=== PATIENT | female | born 1945 | race Caucasian/White ===

== ENCOUNTER 2017-07-21 14:33 | Emergency (ER) | payer OTHER, MEDICAID ==
[2017-07-21 15:06] VITALS: BP 175/86; BMI 43.9
--- NOTE | 2017-07-21 15:53 | DR.GENAD ---
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 Past Surgical History: Yes Surgical History: Hysterectomy - Family History History of Family Medical Conditions: Yes Family Medical History: Diabetes Mellitus - Social History Does patient currently use any type of tobacco product: No Have you used tobacco products in the last 12 months: No Type of Tobacco Use: None Does any household member use tobacco: No Alcohol Use: None Do you use any recreational Drugs:: No Lives With: Family Lives Where: Home - infectious screening In the last 2 months have you had wt loss of >10#?: NO Have you had fever, night sweats or hemotysis?: No Have you traveled outside the country in the last 6 months?: No Isolation: Standard ROS - Review of Systems Eyes: No Symptoms Reported ENTM: No Symptoms Reported Respiratoy: No Symptoms Reported Cardiovascular: No Symptoms Reported Gastrointestinal/Abdominal: No Symptoms Reported Genitourinary: No Symptoms Reported Neurological: No Symptoms Reported Musculoskeletal: No Symptoms Reported Integumentary: No Symptoms Reported Hematologic/Lymphatic: No Symptoms Reported Endocrine: No Symptoms Reported Psychiatric: No Symptoms Reported All Other Systems: Reviewed and Negative PE - Vital Signs Vitals: Pulse Rate 65 Respiratory Rate 20 Blood Pressure 175/86 O2 Sat by Pulse Oximetry 98 - General Limitations: No Limitations General Appearance: Alert, In No Apparent Distress - Head Head Exam: Normal Inspection, Atraumatic - Eyes Eye exam: Normal Appearance, PERRL, EOMI - ENT ENT Exam: Normal Exam, Normal Oropharynx External Ear Exam: Normal External Inspection TM/Canal Exam: Bilateral Normal Nose Exam: Normal Nose Exam, Sinus Tenderness Mouth Exam: Normal Inspection Throat Exam: Normal Inspection - Neck Neck Exam: Normal Inspection, Full ROM - Chest Chest Inspection: Normal Inspection - Respiratory Respiratory Exam: Normal Lung Sounds Bilat Respiratory Exam: Bilateral Clear to Auscultation - Cardiovascular Cardiovascular Exam: Regular Rate, Normal Rhythm - Abdominal Exam Abdominal Exam: Normal Inspection, Normal Bowel Sounds Abdominal Tenderness: negative: RUQ, RLQ, LUQ, LLQ, Epigastrium, Suprapubic, Diffuse, Mild, Moderate, Severe, Other - Extremities Extremities Exam: Normal Inspection, Full ROM - Back Back Exam: Normal Inspection, Full ROM - Neurologic Neurological Exam: Alert, Oriented X3, CN II-XII Intact - Skin Skin Exam: Warm, Dry ROR - Labs Reviewed Result Diagrams: 07/21/17 16:32 Laboratory: WBC 12.8 X10^3/uL (3.6-10.0) H 07/21/17 16:32 RBC 3.98 X10^6/uL (3.5-5.4) 07/21/17 16:32 Hgb 10.2 g/dL (12.0-16.0) L 07/21/17 16:32 Hct 31.1 % (36.0-47.0) L 07/21/17 16:32 MCV 78.1 fL (80.0-100.0) L 07/21/17 16:32 MCH 25.6 pg (27.0-34.0) L 07/21/17 16:32 MCHC 32.8 g/dL (33.0-35.0) L 07/21/17 16:32 RDW 16.8 % (11.6-16.5) H 07/21/17 16:32 Plt Count 296 X10^3/uL (150.0-450.0) 18 16:32 Plt Count Comment Adequate (ADEQUATE) 07/21/17 16:32 MPV 7.8 fL (7.4-11.0) 07/21/17 16:32 Neut % 58.0 % (42.0-75.0) 07/21/17 16:32 Lymph % 33.8 % (21.0-51.0) 07/21/17 16:32 [place] % 7.1 % (0.0-13.0) 07/21/17 16:32 Eos % 0.8 % (0.9-2.9) L 18 16:32 Baso % 0.3 % (0.2-1.0) 07/21/17 16:32 Neut # 7.5 x10^3/uL (2.2-4.8) H 07/21/17 16:32 Lymph # 4.3 X10^3/uL (1.3-2.9) H 07/21/17 16:32 [place] # 0.9 x10^3/uL (0.3-0.8) H 07/21/17 16:32 Eos # 0.1 x10^3/uL (0.0-0.2) 07/21/17 16:32 Baso # 0.0 X10^3/uL (0.0-0.1) 07/21/17 16:32 Absolute Nucleated RBC 0.1 /100WBC 07/21/17 16:32 Plt Morphology Comment Normal (NORMAL) 07/21/17 16:32 RBC Morphology Abnormal (NORMAL) A 07/21/17 16:32 Hypochromasia 1+ A 07/21/17 16:32 Anisocytosis Slight A 07/21/17 16:32 Microcytosis Slight A 07/21/17 16:32 - XRAY XRAY Interpreted by: Radiologist (No acute chest process) - Diagnosis Discharge Problem: URI (upper respiratory infection) Qualifiers: URI type: unspecified viral URI Qualified Code(s): J06.9 - Acute upper respiratory infection, unspecified; B97.89 - Other viral agents as the cause of diseases classified elsewhere; B97.89 - Other viral agents as the cause of diseases classified elsewhere - Discharge Plan Condition: Stable - Follow ups/Referrals Follow ups/Referrals: LAURI SHANNON [Primary Care Provider] - 3 days - Instructions
[2017-07-21 16:45] LABS: BASOPHILS % (AUTO) 0.3 % (0.2-1.0); EOSINOPHILS # (AUTO) 0.1 x10^3/uL (0.0-0.2); EOSINOPHILS % (AUTO) 0.8 % (0.9-2.9); HEMATOCRIT 31.1 % (36.0-47.0); HEMOGLOBIN 10.2 g/dL (12.0-16.0); LYMPHOCYTES # (AUTO) 4.3 X10^3/uL (1.3-2.9); LYMPHOCYTES % (AUTO) 33.8 % (21.0-51.0); MEAN CORPUSCULAR HEMOGLOBIN 25.6 pg (27.0-34.0); MEAN CORPUSCULAR HGB CONC 32.8 g/dL (33.0-35.0); MEAN CORPUSCULAR VOLUME 78.1 fL (80.0-100.0); MEAN PLATELET VOLUME 7.8 fL (7.4-11.0); MONOCYTES # (AUTO) 0.9 x10^3/uL (0.3-0.8); MONOCYTES % (AUTO) 7.1 % (0.0-13.0); NEUTROPHILS # (AUTO) 7.5 x10^3/uL (2.2-4.8); PLATELET COUNT 296 X10^3/uL (150.0-450.0); RED BLOOD COUNT 3.98 X10^6/uL (3.5-5.4); RED CELL DISTRIBUTION WIDTH 16.8 % (11.6-16.5); WHITE BLOOD COUNT 12.8 X10^3/uL (3.6-10.0)
[2017-07-21 17:02] LABS: ANISOCYTOSIS SLIGHT; HYPOCHROMASIA 1+; MICROCYTOSIS SLIGHT; PLATELET MORPHOLOGY COMMENT NORMAL (NORMAL)
--- NOTE | 2017-07-21 18:21 | RAD ---
Chest, one view Indication: Chest pain Comparison: None Findings: Cardiac silhouette size is within normal limits for technique. The lungs are essentially cl ear without focal infiltrate or effusion. Impression: No acute chest process. Reported By:
== END 2017-07-21 18:40 | disposition home or self-care (01) ==
LOC: ER 14:54
DX: J06.9 Acute upper respiratory infection, unspecified (principal); B97.89 Other viral agents as the cause of diseases classified elsewhere
CPT/HCPCS: 36415; 71010; 85025; 99282

== ENCOUNTER 2024-11-06 14:53 | Inpatient (IN) ==
[2024-11-06] MEDS ORDERED: GYLCERIN ADULT SUPP RECTAL PRN (16:39)
[2024-11-06] MEDS ORDERED: MILK OF MAGNESIA PO PRN (16:39)
[2024-11-06] MEDS ORDERED: DULCOLAX SUPPOSITORY 10 MG RECTAL PRN (16:39)
[2024-11-06 16:59] VITALS: BMI 34.5
[2024-11-06] MEDS ORDERED: ULTRAM PO PRN (17:00)
[2024-11-07 06:12] LABS: BASOPHILS % (AUTO) 0.2 % (0.2-1.0); EOSINOPHILS % (AUTO) 0.2 % (0.9-2.9); HEMATOCRIT 26.5 % (36.0-47.0); HEMOGLOBIN 8.6 g/dL (12.0-16.0); LYMPHOCYTES # (AUTO) 3.4 X10^3/uL (1.3-2.9); LYMPHOCYTES % (AUTO) 31.1 % (21.0-51.0); MEAN CORPUSCULAR HEMOGLOBIN 28.6 pg (27.0-34.0); MEAN CORPUSCULAR HGB CONC 32.6 g/dL (33.0-35.0); MEAN CORPUSCULAR VOLUME 87.7 fL (80.0-100.0); MEAN PLATELET VOLUME 7.6 fL (7.4-11.0); MONOCYTES # (AUTO) 0.9 x10^3/uL (0.3-0.8); MONOCYTES % (AUTO) 7.9 % (0.0-13.0); NEUTROPHILS # (AUTO) 6.7 x10^3/uL (2.2-4.8); NEUTROPHILS % (AUTO) 60.6 % (42.0-75.0); PLATELET COUNT 255 X10^3/uL (150.0-450.0); RED BLOOD COUNT 3.02 X10^6/uL (3.5-5.4); RED CELL DISTRIBUTION WIDTH 21.2 % (11.6-16.5); WHITE BLOOD COUNT 11.1 X10^3/uL (3.6-10.0)
[2024-11-07 06:21] LABS: ALANINE AMINOTRANSFERASE 34 Units/L (12-78); ALBUMIN 1.6 g/dL (3.4-5.0); ALKALINE PHOSPHATASE 39 Units/L (46-116); ASPARTATE AMINO TRANSFERASE 29 Units/L (15-37); BLOOD UREA NITROGEN 24 mg/dL (7-18); CALCIUM 10.2 mg/dL (8.5-10.1); CARBON DIOXIDE 22.3 mmol/L (21-32); CHLORIDE 105 mmol/L (98-107); COR CA(FOR HYPOALB) 12.1 mg/dL (8.5-10.1); CREATININE 1.89 mg/dL (0.55-1.02); GLUCOSE 97 mg/dL (65-99); POTASSIUM 3.9 mmol/L (3.5-5.1); SODIUM 138 mmol/L (136-145); TOTAL PROTEIN 7.1 g/dL (6.4-8.2); eGFR NON BLACK RACES 27 (>60)
[2024-11-07 06:39] LABS: ANISOCYTOSIS 1+; PLATELET MORPHOLOGY COMMENT NORMAL (NORMAL)
[2024-11-07] MEDS: LINZESS PO SCH (08:59)
[2024-11-07] MEDS: PriLOSEC PO SCH (08:59)
[2024-11-07] MEDS: COZAAR PO SCH (08:59)
[2024-11-07] MEDS: ZYLOPRIM PO SCH (08:59)
[2024-11-07] MEDS: TYLENOL 325 MG TAB PO PRN (09:27)
--- NOTE | 2024-11-07 09:50 | PT/OTEVAL ---
PT/OT OBJECTIVES - HISTORY Prescription: PT Consult Diagnosis: UTI, Weakness Precautions: Fall Risk, Decreased Safety Awareness/Dementia PMH: Anemia, CKD Stage III, OA, ASCVD, Falls, HTN, ANDRIY, Abdominal Pain, Constipation Other: Per patient report- she resides at home with her 2 daughters in a single story home with ramp to enter. Reports that prior to 3-4 weeks ago she was able to perform mobility tasks on her own using rollator, but since having a fall then she has been declining and unable to ambulate and requiring assistance from her family. Pt also reports having trouble with R shoulder since fall sometime in September (per medical records had been doing home health for this). Reports that she sleeps in a recliner chair. DME: Rollator. History of Present Illness: Pt was admitted to [facility] on 10/30/2024 with hypercalcemia, AMS, ANDRIY and Acute Cystitis. Pt with significant decline functionally and pt's family unable to care for her at home at current level. Pt was stabilized medically and transferred to [facility] for swing bed program on the evening of 11/06/2024. - COGNITION Mental Status: Alert, Oriented, Name, Place, Decreased Safety Awarenes Communication Status: Verbal, Hard of Hearing Ability to Follow Directions: 1 Step Affect: Calm - PAIN Back Pain Scale: Moderate Comments: During sit to stand transfers B Knees Pain Scale: Moderate Comments: In weight bearing positions Right Shoulder Pain Scale: Moderate Comments: With A/PROM to extremity and when attempting to bear weight through RLE Left [place]wder Pain Scale: Mild Comments: With resistive LE motions to perform MMT Right Ankle Pain Scale: Mild Comments: With resistive LE motions to perform MMT - BED MOBILITY Rolling: Maximum, x1 Scooting: Maximum, x2 - TRANSFERS Supine to Sit: Maximum, x1 Sit to Stand: Maximum, x2 Sit or Stand Pivot: Not Tested Sit or Stand Pivot Comment: Unable to safely complete as pt could only stand ~5 seconds w max assist x2 Safety (requires cues for:): Hand Placement Precaution - BALANCE Static Sitting: Fair Standing: Total Assist Dynamic Sitting: Fair Standing: Not Tested - NEUROMOTOR/SENSATION Oliverio. Lower Ext Sensation: WFL Coordination: WFL Proprioception: WFL - HAND DOMINANCE Extremity Function: Hand Dominance: Left - ROM Bilateral LE ROM: Impaired Muscle Tone: WFL Comment: R knee extension: -20 degrees, L knee extension: -15 degrees - STRENGTH Bilateral LE Strength Number: 3 Other comment: 3-/5 - GAIT Comments: Unable to complete at time of evaluation - TREATMENT Date: 11/07/24 Time: 08:00 Treatment Type: Evaluation - TOTAL TREATMENT TIME Total Time: 47 - POST ASSESSMENT Post Assessment Comment: This consult was conducted in real time using [employer] audio and video technology. Patient was informed of the technology being used for this visit and agreed to proceed. Patient located in hospital and provider located at home/office setting. Pt was found supine in bed in room with POLICE COMMUNICATIONS OPERATOR and rehab aide present in room in person and PT via telehealth for assessment. Pt able to provide history and PLOF information; however, no family present to confirm or deny any information provided. Pt without complaints of pain at rest; however, noted with pain to R shoulder, BLEs and back when performing mobility tasks. Pt required max assist for rolling R and L in bed and max assist to transition from supine to sitting EOB with pt attempting in initiate mobility tasks. Once at EOB, pt able to maintain sitting balance unsupported but with slight posterior lean noted. Attempted sit to stand tranfers x 2 from EOB- max assist x 2; however, unable to stand more than 5 seconds and unable to achieve upright standing position despite max assist x 2. Easily fatigues and complaints of back, B knee and R shoulder pain. Pt does have deficits noted to R shoulder ROM (less than 90 degrees into flexion and abduction with both A and PROM) and complaints of pain. Pt assisted back to supine position with max assist and max assist x 2 to scoot and reposition in bed. Discussion of PT POC and goals. - EXIT DISPOSITION Exit Position: BED Call light in reach: Yes Comments: Nurse also present in room. PT/OT ASSESSMENT - PT Problem List: Decreased Bed Mobility, Decreased Transfers, Decreased Gait, Decreased Balance, Decreased Safety, Decreased LE Strength - PT GOALS Short Term Goals Days: 10 Mobility: Pt will perform bed mobility tasks with min assist Transfers: Pt will perform functional transfers with mod assist Gait: Pt will ambulate 10ft with FWW and mod assist Balance: Pt will increase static standing balance to fair- x 3 minuites ROM/Strength: Pt will increase B knee extension ROM by 10 degrees Others: Pt will increase sitting balance to good x 10 minutes Halfway Goals Days: 20 Mobility: Pt will perform bed mobility tasks with supervision Transfers: Pt will perform functional transfers with touch assist Gait: Pt will ambulate 75ft with FWW and touch assist Balance: Pt will increase static standing balance to good x 5 minutes ROM/Strength: Pt will increase BLE strength to 5/5 Others: Pt will increase dynamic standing balance to fair - PATIENT GOALS Patient/Family Goals: "I want to walk again" Goals Discussed with Patient/Family: Yes Rehabilitation Potential: Good to meet stated goals Justification for Potential: Facilitate highest level of function and safe discharge planning If yes, explain: Medically complex - PLAN Suggested Treatment Plan: Bed Mobility Training, Therapeutic Activity, Gait Training, Neuro Re-education, Therapeutic Ex with HEP, Patient Education, Family Education, Other Other comment: Manual Therapy - FREQUENCY AND DURATION PT: 5-6x per week x 20 days Expected Continuation of Care at Discharge: Determined on Progress Anticipated Equipment Needs: FWW
[2024-11-07] MEDS ORDERED: ZOFRAN TAB 4 MG ONE (17:30)
[2024-11-07] MEDS: ZOFRAN TAB 4 MG PO PRN (17:40)
[2024-11-08 06:25] LABS: BASOPHILS # (AUTO) 0.1 X10^3/uL (0.0-0.1); BASOPHILS % (AUTO) 0.6 % (0.2-1.0); EOSINOPHILS % (AUTO) 0.4 % (0.9-2.9); HEMATOCRIT 24.4 % (36.0-47.0); HEMOGLOBIN 8.1 g/dL (12.0-16.0); LYMPHOCYTES # (AUTO) 3.6 X10^3/uL (1.3-2.9); LYMPHOCYTES % (AUTO) 38.9 % (21.0-51.0); MEAN CORPUSCULAR HEMOGLOBIN 29.1 pg (27.0-34.0); MEAN CORPUSCULAR HGB CONC 33.1 g/dL (33.0-35.0); MEAN CORPUSCULAR VOLUME 87.9 fL (80.0-100.0); MEAN PLATELET VOLUME 7.5 fL (7.4-11.0); MONOCYTES # (AUTO) 0.7 x10^3/uL (0.3-0.8); MONOCYTES % (AUTO) 7.2 % (0.0-13.0); NEUTROPHILS # (AUTO) 4.9 x10^3/uL (2.2-4.8); NEUTROPHILS % (AUTO) 52.9 % (42.0-75.0); PLATELET COUNT 225 X10^3/uL (150.0-450.0); RED BLOOD COUNT 2.78 X10^6/uL (3.5-5.4); RED CELL DISTRIBUTION WIDTH 20.8 % (11.6-16.5); WHITE BLOOD COUNT 9.3 X10^3/uL (3.6-10.0)
[2024-11-08 06:47] LABS: ALANINE AMINOTRANSFERASE 31 Units/L (12-78); ALBUMIN 1.6 g/dL (3.4-5.0); ALKALINE PHOSPHATASE 38 Units/L (46-116); ASPARTATE AMINO TRANSFERASE 27 Units/L (15-37); BLOOD UREA NITROGEN 25 mg/dL (7-18); CALCIUM 9.4 mg/dL (8.5-10.1); CARBON DIOXIDE 24.2 mmol/L (21-32); CHLORIDE 105 mmol/L (98-107); COR CA(FOR HYPOALB) 11.3 mg/dL (8.5-10.1); CREATININE 2.01 mg/dL (0.55-1.02); GLUCOSE 76 mg/dL (65-99); POTASSIUM 3.7 mmol/L (3.5-5.1); SODIUM 138 mmol/L (136-145); TOTAL PROTEIN 6.9 g/dL (6.4-8.2); eGFR NON BLACK RACES 25 (>60)
[2024-11-08 06:51] LABS: ANISOCYTOSIS 1+; PLATELET MORPHOLOGY COMMENT NORMAL (NORMAL)
--- NOTE | 2024-11-08 10:08 | PT/OTEVAL ---
PT/OT OBJECTIVES - HISTORY Prescription: OT Consult Diagnosis: UTI, Weakness Precautions: Fall Risk, Decreased Safety Awareness/Dementia PMH: Anemia, CKD Stage III, OA, ASCVD, Falls, HTN, ANDRIY, Abdominal Pain, Constipation Other: Per patient report- she resides at home with her 2 daughters in a single story home with ramp to enter. Reports that prior to 3-4 weeks ago she was able to perform mobility tasks on her own using rollator, but since having a fall then she has been declining and unable to ambulate and requiring assistance from her family. Pt also reports having trouble with R shoulder since fall sometime in September (per medical records had been doing home health for this). Reports that she sleeps in a recliner chair. DME: Rollator. History of Present Illness: Per documentation pt presented to [facility] via EMS due to abd pain and nausea that had been off and on for the past few days and gotten worse upon arrival at ER. Daughter reported that pt fell on R shoulder 2x in Sep. and has been getting therapy at home, however continues with R shoulder pain. She also staes that her mental status has gotten worse over the past few weeks. Pt was admitted to [facility] on 10/30/2024 with hypercalcemia, AMS, ANDRIY and Acute Cystitis. Pt with significant decline functionally and pt's family unable to care for her at home at current level. Pt was stabilized medically and transferred to [facility] for swing bed program on the evening of 11/06/2024. - COGNITION Mental Status: Alert, Oriented, Name, Place, Decreased Safety Awarenes Communication Status: Verbal, Hard of Hearing Ability to Follow Directions: 1 Step Affect: Calm - PAIN Back Pain Scale: Moderate Comments: During sit to stand transfers Right Shoulder Pain Scale: Moderate Comments: With A/PROM to extremity and when attempting to bear weight through RLE Right Ankle Pain Scale: Mild Comments: With resistive LE motions to perform MMT B Knees Pain Scale: Moderate Comments: In weight bearing positions Left [place]der Pain Scale: Mild Comments: With resistive LE motions to perform MMT - BED MOBILITY Rolling: Maximum, x1 Scooting: Maximum - TRANSFERS Supine to Sit: Maximum, x1 Sit to Stand: Maximum, x2 Sit or Stand Pivot Comment: Unable to STS completely, and unable to transfer at eval. Toileting: Maximum Safety (requires cues for:): Hand Placement Precaution - ADL'S Feeding: Supervision Grooming: Maximum Grooming: Due to R shoulder deficit Upper Body ADL: Moderate Lower Body ADL: Maximum, X2 Lower Body ADL: To pull up pants. Toileting: Dependent Bathing: Maximum Hygeine: Moderate - BALANCE Static Sitting: Fair Standing: Total Assist Balance Comment: Pt supine to sit with max A x1 with mod VC for hand placement. Pt sat EOB with mod A at first to get bearings, however was able to sit with supv A after 2 mins of support. Dynamic Sitting: Fair Standing: Not Tested - NEUROMOTOR/SENSATION Oliverio. Lower Ext Sensation: WFL Coordination: WFL Proprioception: WFL Oliverio. Upper Ext Sensation: WFL Coordination: WFL - HAND DOMINANCE Extremity Function: Hand Dominance: Left - ROM Left UE ROM: WFL Right UE ROM: Impaired Comment: R shoulder limitation - STRENGTH Bilateral LE Strength Number: 3 Other comment: 3-/5 Left UE Strength Number: 3 Other comment: 3+/5 Right UE Strength Number: 2 Other comment: R shoulder pain - TREATMENT Date: 11/08/24 Time: 09:30 Treatment Type: Evaluation Treatment Provided: Other - TOTAL TREATMENT TIME Total Time: 70 - POST ASSESSMENT Post Assessment Comment: Pt was seen for skilled OT to assess CLOF. Pt was agreeable to participate with skilled OT and able to provide PLOF and hx. Pt supine to sit with max A x2. Sitting EOB with mod A for ~ 2 mins then was able to sit up right with supv A. Pt attempted 2 STS with max A x2 and RW. Pt did not tolerate standing for longer than 5 seconds due to pain in B knees. Pt doffed and donned UB gown with mod A and mod VC. Pt donned socks with max A. Log rolling in bed with max A. Pt had all needs met and call light within reach. Pt demonstrate deficits with ADLs and ADL functional mobility. Pt would benefit from skilled OT services to address ADL deficits to facilitate highest level of ADL function needed for safe d/c planning. - EXIT DISPOSITION Exit Position: BED Call light in reach: Yes PT/OT ASSESSMENT - OT Problem List: Decreased Mobility ADL's, Decreased Safety Aware, Decreased Dressing, Decreased Bathing, Decreased Grooming, Decreased UE Strength, Other Other, comment: FAT - PT GOALS Short Term Goals Days: 10 Mobility: Pt will perform bed mobility tasks with min assist Transfers: Pt will perform functional transfers with mod assist Gait: Pt will ambulate 10ft with FWW and mod assist Balance: Pt will increase static standing balance to fair- x 3 minuites ROM/Strength: Pt will increase B knee extension ROM by 10 degrees Others: Pt will increase sitting balance to good x 10 minutes Snf Goals Days: 20 Mobility: Pt will perform bed mobility tasks with supervision Transfers: Pt will perform functional transfers with touch assist Gait: Pt will ambulate 75ft with FWW and touch assist Balance: Pt will increase static standing balance to good x 5 minutes ROM/Strength: Pt will increase BLE strength to 5/5 Others: Pt will increase dynamic standing balance to fair - OT GOALS Organ Fixer Goals Days: 20 Mobility for ADL's: Pt to improve functional transfers to supv A and LRAD Safety Awareness: Pt to improve safety awareness to G Dressing: Pt to improve LB dressing to supv A Bathing: Pt to improve overall bathing to supv A Grooming: Pt to improve overall grooming and oral care to set up A Upper Ext. Strength/Use: Pt to improve MMT in BUE by 1 grade Other: Pt to improve FAT to G Short Term Goals Days: 10 Mobility for ADL's: Pt to improve functional transfers to min A and LRAD Safety Awareness: Pt to improve safety awareness to F+ Dressing: Pt to improve UB dressing to min A Bathing: Pt to improve overall bathing to min A Grooming: Pt to improve overall grooming and oral care to supv A Upper Ext. Strength/Use: - Other: Pt to improve FAT to F+ - PATIENT GOALS Patient/Family Goals: To go home and feel better Goals Discussed with Patient/Family: Yes Rehabilitation Potential: Good to meet stated goals Justification for Potential: To facilitate highest level of ADL function needed for safe d/c planning. Weakness and Barriers: Pain If yes, explain: Pain in R shoulder and B knees. - PLAN Suggested Treatment Plan: Bed Mobility Training, Therapeutic Activity, Self Care Training, Neuro Re-education, Therapeutic Ex with HEP, Patient Education, Family Education - FREQUENCY AND DURATION OT: 5x a week x 20 days Expected Continuation of Care at Discharge: Determined on Progress
[2024-11-08] MEDS: BUTT CREAM (COMPOUND) TOP PRN (20:56)
--- NOTE | 2024-11-09 11:36 | PCM.PROG ---
Progress Note Progress Note for Day of Date of Exam: 11/09/24 Subjective Subjective: Patient is a 79-year-old female admitted as a swing bed to receive physical therapy for generalized weakness after hospital stay for acute cystitis. This morning she is sitting up in bed. No acute events overnight. She will be working with physical therapy. Labs: WBC 9.3, hemoglobin 8.1, platelets 225, sodium 138, potassium 3.7, creatinine 2.01, glucose 76. Patient will continue to work with physical therapy, she is tolerating p.o. intake. Otherwise continue current treatment plan. Continue closely monitor and follow- up labs. Past Medical Family Social History Allergies: Allergies codeine Allergy (Verified 11/07/24 13:27) tramadol Adverse Reaction (Verified 11/07/24 13:27) Review of Systems ROS changes noted: see HPI Vital Signs and I&O's Vital Signs: Vital Signs Temperature 98.4 F Pulse Rate [Brachial] 75 Respiratory Rate 20 Respiratory Rate 20 Blood Pressure [Right Arm] 134/60 O2 Sat by Pulse Oximetry 100 Intake and Output: Intake & Output 11/06/24 11/07/24 11/08/24 11/09/24 23:59 23:59 23:59 23:59 Intake Total 440 / 440 510 / 510 50 / 50 Balance 440 / 440 510 / 510 50 / 50 Physical Exam Oriented: Normal Respiratory: Normal Cardiovascular: Normal Auscultation: Bowel Sounds: Normal Skin: Normal Musculoskeletal: Normal Mood Description: Calm Speech Pattern: Clear and Appropriate Laboratory and Diagnostics 11/08/24 05:58 11/08/24 05:58 Labs: Laboratory WBC 9.3 X10^3/uL (3.6-10.0) 11/08/24 05:58 RBC 2.78 X10^6/uL (3.5-5.4) L 11/08/24 05:58 Hgb 8.1 g/dL (12.0-16.0) L 11/08/24 05:58 Hct 24.4 % (36.0-47.0) L 11/08/24 05:58 MCV 87.9 fL (80.0-100.0) 11/08/24 05:58 MCH 29.1 pg (27.0-34.0) 11/08/24 05:58 MCHC 33.1 g/dL (33.0-35.0) 11/08/24 05:58 RDW 20.8 % (11.6-16.5) H 11/08/24 05:58 Plt Count 225 X10^3/uL (150.0-450.0) 11/08/24 05:58 Plt Count Comment Adequate (ADEQUATE) 11/08/24 05:58 MPV 7.5 fL (7.4-11.0) 11/08/24 05:58 Neut % (Auto) 52.9 % (42.0-75.0) 11/08/24 05:58 Lymph % (Auto) 38.9 % (21.0-51.0) 11/08/24 05:58 [place] % (Auto) 7.2 % (0.0-13.0) 11/08/24 05:58 Eos % (Auto) 0.4 % (0.9-2.9) L 11/08/24 05:58 Baso % (Auto) 0.6 % (0.2-1.0) 11/08/24 05:58 Neut # (Auto) 4.9 x10^3/uL (2.2-4.8) H 11/08/24 05:58 Lymph # (Auto) 3.6 X10^3/uL (1.3-2.9) H 11/08/24 05:58 [place] # (Auto) 0.7 x10^3/uL (0.3-0.8) 11/08/24 05:58 Eos # (Auto) 0.0 x10^3/uL (0.0-0.2) 11/08/24 05:58 Baso # (Auto) 0.1 X10^3/uL (0.0-0.1) 11/08/24 05:58 Absolute Nucleated RBC 0.7 /100WBC 11/08/24 05:58 Plt Morphology Comment Normal (NORMAL) 11/08/24 05:58 RBC Morphology Abnormal (NORMAL) A 11/08/24 05:58 Anisocytosis 1+ A 11/08/24 05:58 Sodium 138 mmol/L (136-145) 11/08/24 05:58 Corrected Sodium TNP 11/08/24 05:58 Potassium 3.7 mmol/L (3.5-5.1) 11/08/24 05:58 Chloride 105 mmol/L (98-107) 11/08/24 05:58 Carbon Dioxide 24.2 mmol/L (21-32) 11/08/24 05:58 BUN 25 mg/dL (7-18) H 11/08/24 05:58 Creatinine 2.01 mg/dL (0.55-1.02) H 11/08/24 05:58 Est GFR (MDRD) Af Amer 31 (>60) L 11/08/24 05:58 Est GFR (MDRD) Non-Af 25 (>60) L 11/08/24 05:58 Glucose 76 mg/dL (65-99) 11/08/24 05:58 POC Glucose (mg/dL) 75 mg/dL (65-99) 11/07/24 20:32 Calcium 9.4 mg/dL (8.5-10.1) 11/08/24 05:58 Corrected Calcium 11.3 mg/dL (8.5-10.1) H 11/08/24 05:58 Total Bilirubin 0.40 mg/dL (0.2-1.0) 11/08/24 05:58 AST 27 Units/L (15-37) 11/08/24 05:58 ALT 31 Units/L (12-78) 11/08/24 05:58 Alkaline Phosphatase 38 Units/L (46-116) L 11/08/24 05:58 Total Protein 6.9 g/dL (6.4-8.2) 11/08/24 05:58 Albumin 1.6 g/dL (3.4-5.0) L 11/08/24 05:58 Globulin 5.3 g/dL (2.5-4.5) H 11/08/24 05:58 Albumin/Globulin Ratio 0.3 Ratio (1.1-2.1) L 11/08/24 05:58 Plan (1) Generalized weakness: Status: Acute
--- NOTE | 2024-11-09 14:08 | DR.H&P ---
H&P History & Physical for Day of: H&P Date: 11/07/24 Chief Complaint Chief Complaint: Generalized weakness History of Present Illness History of Present Illness: Ms. Farris is a 79-year-old female with a past medical history of hyperlipidemia, neuropathy and hypertension who presented for swing bed status for physical therapy due to generalized weakness. Patient was recently hospitalized after having a fall, UTI, ANDRIY and dehydration. She has completed antibiotics for E. coli UTI. She was transferred here for physical t herapy swing bed. Patient was taking tramadol as needed but reports that that makes her sick. Labs/imaging reviewed See scanned records Plan: Will order routine labs CBC, CMP for a.m. Resume home medications. Tylenol as needed for pain control. Patient has already completed Rocephin for UTI. Physical therapy consult. Fall precautions. Labs as needed. Past Medical History Past Medical History: Arthritis, Dyslipidemia, GERD and Hypertension Past Surgical History Surgical History: Ortho Surgery Family History Family Medical History: Diabetes Mellitus, Cancer and Hypertension Medications Home Medications: Home Medications Medication Instructions Recorded Confirmed Type atorvastatin 10 mg tablet 10 mg PO QPM 11/06/24 11/06/24 History gabapentin 100 mg capsule 100 mg PO TID PRN 11/06/24 11/06/24 History losartan 100 mg tablet 100 mg PO QDAY 11/06/24 11/06/24 History Allergies Allergies Allergy/AdvReac Type Severity Reaction Status Date / Time codeine Allergy Verified 11/07/24 13:27 tramadol AdvReac Verified 11/07/24 13:27 Labs 11/08/24 05:58 11/08/24 05:58 Labs: Laboratory WBC 11.1 X10^3/uL (3.6-10.0) H 11/07/24 05:50 RBC 3.02 X10^6/uL (3.5-5.4) L 11/07/24 05:50 Hgb 8.6 g/dL (12.0-16.0) L 11/07/24 05:50 Hct 26.5 % (36.0-47.0) L 11/07/24 05:50 MCV 87.7 fL (80.0-100.0) 11/07/24 05:50 MCH 28.6 pg (27.0-34.0) 11/07/24 05:50 MCHC 32.6 g/dL (33.0-35.0) L 11/07/24 05:50 RDW 21.2 % (11.6-16.5) H 11/07/24 05:50 Plt Count 255 X10^3/uL (150.0-450.0) 11/07/24 05:50 Plt Count Comment Adequate (ADEQUATE) 11/07/24 05:50 MPV 7.6 fL (7.4-11.0) 11/07/24 05:50 Neut % (Auto) 60.6 % (42.0-75.0) 11/07/24 05:50 Lymph % (Auto) 31.1 % (21.0-51.0) 11/07/24 05:50 [place] % (Auto) 7.9 % (0.0-13.0) 11/07/24 05:50 Eos % (Auto) 0.2 % (0.9-2.9) L 11/07/24 05:50 Baso % (Auto) 0.2 % (0.2-1.0) 11/07/24 05:50 Neut # (Auto) 6.7 x10^3/uL (2.2-4.8) H 11/07/24 05:50 Lymph # (Auto) 3.4 X10^3/uL (1.3-2.9) H 11/07/24 05:50 [place] # (Auto) 0.9 x10^3/uL (0.3-0.8) H 11/07/24 05:50 Eos # (Auto) 0.0 x10^3/uL (0.0-0.2) 11/07/24 05:50 Baso # (Auto) 0.0 X10^3/uL (0.0-0.1) 11/07/24 05:50 Absolute Nucleated RBC 0.7 /100WBC 11/07/24 05:50 Plt Morphology Comment Normal (NORMAL) 11/07/24 05:50 RBC Morphology Abnormal (NORMAL) A 11/07/24 05:50 Anisocytosis 1+ A 11/07/24 05:50 Sodium 138 mmol/L (136-145) 11/07/24 05:50 Corrected Sodium TNP 11/07/24 05:50 Potassium 3.9 mmol/L (3.5-5.1) 11/07/24 05:50 Chloride 105 mmol/L (98-107) 11/07/24 05:50 Carbon Dioxide 22.3 mmol/L (21-32) 11/07/24 05:50 BUN 24 mg/dL (7-18) H 11/07/24 05:50 Creatinine 1.89 mg/dL (0.55-1.02) H 11/07/24 05:50 Est GFR (MDRD) Af Amer 33 (>60) L 11/07/24 05:50 Est GFR (MDRD) Non-Af 27 (>60) L 11/07/24 05:50 Glucose 97 mg/dL (65-99) 11/07/24 05:50 Calcium 10.2 mg/dL (8.5-10.1) H 11/07/24 05:50 Corrected Calcium 12.1 mg/dL (8.5-10.1) H 11/07/24 05:50 Total Bilirubin 0.30 mg/dL (0.2-1.0) 11/07/24 05:50 AST 29 Units/L (15-37) 11/07/24 05:50 ALT 34 Units/L (12-78) 11/07/24 05:50 Alkaline Phosphatase 39 Units/L (46-116) L 11/07/24 05:50 Total Protein 7.1 g/dL (6.4-8.2) 11/07/24 05:50 Albumin 1.6 g/dL (3.4-5.0) L 11/07/24 05:50 Globulin 5.5 g/dL (2.5-4.5) H 11/07/24 05:50 Albumin/Globulin Ratio 0.3 Ratio (1.1-2.1) L 11/07/24 05:50 Review of Systems Constitutional: Weakness Eyes: No Symptoms Reported ENT: No Symptoms Reported Respiratory: No Symptoms Reported Cardiovascular: No Symptoms Reported Gastrointestinal: No Symptoms Reported Genitourinary: No Symptoms Reported Musculoskeletal: Other (Generalized weakness) Skin: No Symptoms Reported Neurological: No Symptoms Reported Physical Exam Vital Signs: Vital Signs Temperature 97.5 F Pulse Rate [Brachial] 71 Respiratory Rate 18 Respiratory Rate 20 Respiratory Rate 18 Blood Pressure [Right Arm] 136/63 O2 Sat by Pulse Oximetry 99 Oriented: Normal Eyes: Normal Throat: Normal Respiratory: Clear Throughout Cardiovascular: Normal Auscultation: Bowel Sounds: Normal Palpation: Normal Tenderness: Normal Skin: Normal Musculoskeletal: Motor Deficit Psychiatric: Normal Mood Description: Calm Affect: Normal Speech Pattern: Clear and Appropriate Assessment/Plan (1) Generalized weakness: Status: Acute (2) History of recent fall: Status: Acute (3) Hypertension: Qualifiers: Hypertension type: primary hypertension Qualified Code(s): I10 - Essential (primary) hypertension Status: Chronic (4) Hyperlipidemia: Qualifiers: Hyperlipidemia type: mixed hyperlipidemia Qualified Code(s): E78.2 - Mixed hyperlipidemia Status: Chronic Review H&P Reviewed: Yes Patient was examined?: Yes
[2024-11-09] MEDS: RESTORIL CAP 15 MG PO PRN (21:28)
[2024-11-09] MEDS: COLACE CAP 100 MG PO SCH (21:28)
[2024-11-11 08:12] LABS: HEMOGLOBIN 7.1 g/dL (12.0-16.0)
[2024-11-11 09:49] LABS: RETICULOCYTE % 1.53 % (0.8-2.2)
[2024-11-11] MEDS: NS 500 ML IV 500 ML IV ONE ×2 (13:46→20:17)
[2024-11-11 16:11] LABS: HEMATOCRIT 27.8 % (36.0-47.0)
[2024-11-11 16:16] LABS: HEMOGLOBIN 9.2 g/dL (12.0-16.0)
[2024-11-12 06:28] LABS: HEMATOCRIT 24.9 % (36.0-47.0); HEMOGLOBIN 8.5 g/dL (12.0-16.0)
[2024-11-12 08:23] LABS: ALANINE AMINOTRANSFERASE 30 Units/L (12-78); ALBUMIN 1.5 g/dL (3.4-5.0); ALKALINE PHOSPHATASE 43 Units/L (46-116); ASPARTATE AMINO TRANSFERASE 31 Units/L (15-37); BLOOD UREA NITROGEN 28 mg/dL (7-18); CALCIUM 8.3 mg/dL (8.5-10.1); CARBON DIOXIDE 23.8 mmol/L (21-32); CHLORIDE 107 mmol/L (98-107); COR CA(FOR HYPOALB) 10.3 mg/dL (8.5-10.1); CREATININE 2.31 mg/dL (0.55-1.02); GLUCOSE 75 mg/dL (65-99); POTASSIUM 3.8 mmol/L (3.5-5.1); SODIUM 140 mmol/L (136-145); TOTAL PROTEIN 6.7 g/dL (6.4-8.2); eGFR NON BLACK RACES 22 (>60)
[2024-11-12] MEDS: NS 1,000 ML IV 1,000 ML IV SCH (10:34)
[2024-11-12] MEDS: PROCRIT or EPOGEN VIAL 10,000 UNITS SC ONE (14:06)
--- NOTE | 2024-11-12 14:41 | NOTE.SOAP ---
Soap Note Note for Day of Date of Exam: 11/12/24 Subjective Data Subjective Data: Patient in swing bed status. Seen with nurse and daughter at bedside. No acute events today. Was transfused 1 PRBC unit yesterday. Did well. Hemoglobin responded from 7.1-9.2. Was on Procrit until she fell and has had gradual decline in function. She was unable to transport to infusion facility. Asking if it could be started here. Objective Data Objective Data: Elderly, obese female in no acute distress. Hearing intact conversation. Head NCAT. Heart regular rate and rhythm. Lungs clear with shallow respirations. Mood and affect are appropriate. Assessment Assessment: 1. Chronic anemia due to CKD 2. Hypertension 3. Generalized weakness Plan Plan: Doing well status post transfusion yesterday. Continue to monitor. Start Procrit back. Plan on transitioning to another rehab environment tomorrow or Wednesday.
[2024-11-13 06:37] LABS: BASOPHILS % (AUTO) 0.3 % (0.2-1.0); EOSINOPHILS # (AUTO) 0.1 x10^3/uL (0.0-0.2); EOSINOPHILS % (AUTO) 0.8 % (0.9-2.9); HEMATOCRIT 24.2 % (36.0-47.0); HEMOGLOBIN 8.3 g/dL (12.0-16.0); LYMPHOCYTES # (AUTO) 3.3 X10^3/uL (1.3-2.9); MEAN CORPUSCULAR HEMOGLOBIN 29.4 pg (27.0-34.0); MEAN CORPUSCULAR HGB CONC 34.2 g/dL (33.0-35.0); MEAN CORPUSCULAR VOLUME 85.9 fL (80.0-100.0); MEAN PLATELET VOLUME 7.4 fL (7.4-11.0); MONOCYTES # (AUTO) 0.5 x10^3/uL (0.3-0.8); MONOCYTES % (AUTO) 7.3 % (0.0-13.0); NEUTROPHILS % (AUTO) 43.6 % (42.0-75.0); PLATELET COUNT 204 X10^3/uL (150.0-450.0); RED BLOOD COUNT 2.81 X10^6/uL (3.5-5.4); RED CELL DISTRIBUTION WIDTH 20.5 % (11.6-16.5); WHITE BLOOD COUNT 6.9 X10^3/uL (3.6-10.0)
[2024-11-13 07:00] LABS: ALANINE AMINOTRANSFERASE 30 Units/L (12-78); ALBUMIN 1.4 g/dL (3.4-5.0); ALKALINE PHOSPHATASE 38 Units/L (46-116); ASPARTATE AMINO TRANSFERASE 28 Units/L (15-37); BLOOD UREA NITROGEN 27 mg/dL (7-18); CALCIUM 7.9 mg/dL (8.5-10.1); CHLORIDE 109 mmol/L (98-107); CREATININE 2.08 mg/dL (0.55-1.02); GLUCOSE 74 mg/dL (65-99); MAGNESIUM 1.8 mg/dL (2.0-2.9); POTASSIUM 3.6 mmol/L (3.5-5.1); SODIUM 140 mmol/L (136-145); TOTAL PROTEIN 6.3 g/dL (6.4-8.2); eGFR NON BLACK RACES 24 (>60)
[2024-11-13] MEDS: CONSULT PHARMACY - POTASSIUM & MAGNESIUM XX SCH (07:25)
[2024-11-13 07:39] LABS: ANISOCYTOSIS 1+; PLATELET MORPHOLOGY COMMENT NORMAL (NORMAL); TARGET CELLS SLIGHT
[2024-11-13] MEDS ORDERED: MAG-OX TAB PO SCH (08:00)
[2024-11-13] MEDS ORDERED: K-DUR TAB 20 MEQ PO SCH (08:00)
[2024-11-13] MEDS: MAG-OX TAB PO NR (09:16)
[2024-11-13] MEDS: KLOR-CON 10 MEQ TAB PO NR (09:16)
[2024-11-13] MEDS ORDERED: ROBITUSSIN DM PO PRN (09:39)
[2024-11-13] MEDS ORDERED: PULMICORT NEB TX 0.5 MG NEB SCH (09:45)
[2024-11-13] MEDS ORDERED: DUONEB 0.5 MG/3 MG (3 mL) NEB SCH (10:00)
--- NOTE | 2024-11-13 11:01 | PCM.PROG ---
Progress Note Progress Note for Day of Date of Exam: 11/13/24 Subjective Subjective: Patient seen at bedside, no acute events overnight. She was started on IVF yesterday due to feeling weak and having decreased PO intake. She is feeling better today. She is currently admitted as a swing bed to receive physical therapy for generalized weakness after hospital stay for acute cy stitis. She does report having some productive cough. Labs/imaging reviewed: -WBC 6.9 Hgb 8.3 K 3.6 BUN/Cr 27/2.08 Plan: continue hydration. Will get CXR, AIT resp and add cough medicine. Cont inue nebs prn. Continue current home medications. PT/OT as tolerated. Encouraged PO intake. Monitor AM labs/imaging. Past Medical Family Social History Allergies: Allergies codeine Allergy (Verified 11/07/24 13:27) tramadol Adverse Reaction (Verified 11/07/24 13:27) Vital Signs and I&O's Vital Signs: Vital Signs Temperature 98.1 F Pulse Rate [Brachial] 75 Respiratory Rate 20 Blood Pressure [Right Arm] 148/65 O2 Sat by Pulse Oximetry 100 Intake and Output: Intake & Output 11/10/24 11/11/24 11/12/24 11/13/24 23:59 23:59 23:59 23:59 Intake Total 720 / 720 2200 / 2200 1217 / 1217 940 / 940 Balance 720 / 720 2200 / 2200 1217 / 1217 940 / 940 Physical Exam Oriented: Normal Eyes: Normal Throat: Normal Respiratory: Normal Cardiovascular: Normal Auscultation: Bowel Sounds: Normal Palpation: Normal Tenderness: Normal Skin: Normal Musculoskeletal: Motor Deficit Psychiatric: Normal Mood Description: Calm Affect: Normal Speech Pattern: Clear and Appropriate Laboratory and Diagnostics 11/13/24 06:15 11/13/24 06:15 Labs: Laboratory WBC 6.9 X10^3/uL (3.6-10.0) 11/13/24 06:15 RBC 2.81 X10^6/uL (3.5-5.4) L 11/13/24 06:15 Hgb 8.3 g/dL (12.0-16.0) L 11/13/24 06:15 Hct 24.2 % (36.0-47.0) L 11/13/24 06:15 MCV 85.9 fL (80.0-100.0) 11/13/24 06:15 MCH 29.4 pg (27.0-34.0) 11/13/24 06:15 MCHC 34.2 g/dL (33.0-35.0) 11/13/24 06:15 RDW 20.5 % (11.6-16.5) H 11/13/24 06:15 Plt Count 204 X10^3/uL (150.0-450.0) 11/13/24 06:15 Plt Count Comment Adequate (ADEQUATE) 11/13/24 06:15 MPV 7.4 fL (7.4-11.0) 11/13/24 06:15 Neut % (Auto) 43.6 % (42.0-75.0) 11/13/24 06:15 Lymph % (Auto) 48.0 % (21.0-51.0) 11/13/24 06:15 [place] % (Auto) 7.3 % (0.0-13.0) 11/13/24 06:15 Eos % (Auto) 0.8 % (0.9-2.9) L 11/13/24 06:15 Baso % (Auto) 0.3 % (0.2-1.0) 11/13/24 06:15 Neut # (Auto) 3.0 x10^3/uL (2.2-4.8) 11/13/24 06:15 Lymph # (Auto) 3.3 X10^3/uL (1.3-2.9) H 11/13/24 06:15 [place] # (Auto) 0.5 x10^3/uL (0.3-0.8) 11/13/24 06:15 Eos # (Auto) 0.1 x10^3/uL (0.0-0.2) 11/13/24 06:15 Baso # (Auto) 0.0 X10^3/uL (0.0-0.1) 11/13/24 06:15 Absolute Nucleated RBC 0.5 /100WBC 11/13/24 06:15 Plt Morphology Comment Normal (NORMAL) 11/13/24 06:15 RBC Morphology Abnormal (NORMAL) A 11/13/24 06:15 Anisocytosis 1+ A 11/13/24 06:15 Target Cells Slight A 11/13/24 06:15 Absolute Retic 0.0414 10^6/uL 11/11/24 09:25 Percent Retic 1.53 % (0.8-2.2) 11/11/24 09:25 Sodium 140 mmol/L (136-145) 11/13/24 06:15 Corrected Sodium TNP 11/13/24 06:15 Potassium 3.6 mmol/L (3.5-5.1) 11/13/24 06:15 Chloride 109 mmol/L (98-107) H 11/13/24 06:15 Carbon Dioxide 22.0 mmol/L (21-32) 11/13/24 06:15 BUN 27 mg/dL (7-18) H 11/13/24 06:15 Creatinine 2.08 mg/dL (0.55-1.02) H 11/13/24 06:15 Est GFR (MDRD) Af Amer 30 (>60) L 11/13/24 06:15 Est GFR (MDRD) Non-Af 24 (>60) L 11/13/24 06:15 Glucose 74 mg/dL (65-99) 11/13/24 06:15 POC Glucose (mg/dL) 75 mg/dL (65-99) 11/07/24 20:32 Calcium 7.9 mg/dL (8.5-10.1) L 11/13/24 06:15 Corrected Calcium 10.0 mg/dL (8.5-10.1) 11/13/24 06:15 Magnesium 1.8 mg/dL (2.0-2.9) L 11/13/24 06:15 Iron 53 ug/dL (50-175) 11/11/24 09:19 TIBC 75 ug/dL (250-450) L 11/11/24 09:19 Transferrin 53 mg/dL (202-364) L 11/11/24 09:19 Ferritin 648 ng/mL (8-252) H 11/11/24 09:19 Total Bilirubin 0.50 mg/dL (0.2-1.0) 11/13/24 06:15 AST 28 Units/L (15-37) 11/13/24 06:15 ALT 30 Units/L (12-78) 11/13/24 06:15 Alkaline Phosphatase 38 Units/L (46-116) L 11/13/24 06:15 Total Protein 6.3 g/dL (6.4-8.2) L 11/13/24 06:15 Albumin 1.4 g/dL (3.4-5.0) L 11/13/24 06:15 Globulin 4.9 g/dL (2.5-4.5) H 11/13/24 06:15 Albumin/Globulin Ratio 0.3 Ratio (1.1-2.1) L 11/13/24 06:15 Vitamin B12 1173 pg/mL (193-986) H 11/11/24 09:19 Folate 3.9 ng/mL (>8.6) L 11/11/24 09:19 Blood Type O POSITIVE 11/11/24 09:19 Antibody Screen Negative 11/11/24 09:19 Crossmatch See Detail 11/11/24 09:19 Plan (1) Dehydration: Status: Acute (2) Bronchitis: Status: Acute (3) Generalized weakness: Status: Acute (4) History of recent fall: Status: Acute (5) Hypertension: Status: Chronic Qualifiers: Hypertension type: primary hypertension Qualified Code(s): I10 - Essential (primary) hypertension (6) Hyperlipidemia: Status: Chronic Qualifiers: Hyperlipidemia type: mixed hyperlipidemia Qualified Code(s): E78.2 - Mixed hyperlipidemia
[2024-11-14 05:59] LABS: MAGNESIUM 1.7 mg/dL (2.0-2.9); POTASSIUM 3.8 mmol/L (3.5-5.1)
--- NOTE | 2024-11-14 06:50 | RAD ---
EXAM:Portable chestHISTORY:CoughCOMPARISON:09/14/2024 .br.br.br.br heart failure is noted. Aorta is calcified and mildly ectatic. Lungs are free of acute infiltrates. No pleural effusions identified. Bony thorax is unremarkable with the exception of osteopenia and bilateral glenohumeral joint degenerative joint disease.IMPRESSION:No acute infiltratesTHIS IS AN ELECTRONICALLY VERIFIED FINAL REPORT11/14/2024 6:47 AM - Electronically signed by Quincy Chavez MD
[2024-11-14 09:34] VITALS: BP 112/55; PULSE 74; TEMP 98.2; O2SAT 96
[2024-11-14 11:09] VITALS: RESP 18
== END 2024-11-14 13:22 | disposition home health service (06) | DRG 690 ==
LOC: MED/SURG 16:00
PROVIDERS: ADMIT Internal Medicine; ATTEND Internal Medicine
DX: R53.1 Weakness; N18.30 Chronic kidney disease, stage 3 unspecified; R05.8 Other specified cough; R26.81 Unsteadiness on feet; I10 Essential (primary) hypertension; Z91.81 History of falling; R94.4 Abnormal results of kidney function studies; R06.02 Shortness of breath; M62.81 Muscle weakness (generalized); Z51.89 Encounter for other specified aftercare; E78.2 Mixed hyperlipidemia; N39.0 Urinary tract infection, site not specified; D63.1 Anemia in chronic kidney disease; E83.42 Hypomagnesemia; K21.9 Gastro-esophageal reflux disease without esophagitis